=== PATIENT | female | born 1990 | race Caucasian/White ===

== ENCOUNTER 2016-12-02 21:32 | Emergency (ER) ==
--- NOTE | 2016-12-02 23:51 | Diag Imaging Result Document ---
PROCEDURE NAME: HEAD W/O CONTRAST - 12/02/2016 CT BRAIN WITHOUT: FINDINGS: No parenchymal hemorrhage. No epidural or subdural hematoma. No subarachnoid hemorrhage. No mass identified on this noncontrasted exam. No hydrocephalus. No sinus opacification. IMPRESSION: No hemorrhage. Negative brain CT without contrast. A preliminary report was given at 11:31 p.m.
--- NOTE | 2016-12-03 00:33 | PROVIDER DOCUMENTATION ---
HPI-EENT General - General Source: patient - History of Present Illness-EENT General EENT Location: reports: eye (R) Quality of Pain: reports: none Severity: reports: mild Onset/Duration: reports: this afternoon Timing: reports: gone now Prearrival Treatment: Initiated no prearrival treatment Associated Symptoms: denies: cough, fever, sore throat - Eyes Eye Problem Symptoms: reports: decrease vision. denies: eye pain, burning Apparent Injury?: No Eye Problem Context: reports: none <Jone Clark - Last Filed: 12/03/16 01:01> <Quentin Gray - Last Filed: 12/03/16 01:07> - General Chief Complaint: Eye Complaint Stated Complaint: VISION LOST (R) SIDE,HEADACHE Time Seen by Provider: 12/03/16 00:15 Allergies/Adverse Reactions: Patient Allergies Allergy/AdvReac Type Severity Reaction Status Date / Time propylene glycol Allergy RASH Verified 12/02/16 23:16 Home Medications: Home Medication List Medication Instructions Recorded Confirmed Last Taken Type Amoxicillin [Amoxil] 500 mg PO BID #10 capsule 10/01/15 Unknown Rx Antipyrine/Benzocain Otic Soln 15 ml .SEE ORDER DIRECTED PRN 10/01/15 Unknown Rx [Auralgan Otic Soln] #1 bottle Prednisone 20 mg PO DAILY #6 tablet 10/01/15 Unknown Rx Amoxicillin/Pot Clavulanate 875 mg PO Q12HR #14 tablet 02/27/16 Unknown Rx [Augmentin] Levofloxacin [Levaquin] 750 mg PO DAILY 02/27/16 02/27/16 Unknown History Lidocaine 2% Viscous [Xylocaine 2% 15 ml MT Q3H PRN PRN #1 bottle 02/27/16 Unknown Rx Viscous] Tramadol [Ultram] 50 mg PO Q8HR #14 tablet 02/27/16 Unknown Rx - History of Present Illness-EENT General Nature of Presenting Problem: 26 y/o WF presents to the ED with loss of vision with right eye to the right side of her body. Pt sais it became very distorted. Pt states she has a hx of migraines and states she now has a headache. (Jone Clark) Review of Systems - Adult - REVIEW OF SYSTEMS - ADULT Constitutional: denies: chills, fever Eyes: reports: decreased vision. denies: discharge, dry eyes, eye pain Ears, Nose, Mouth & Throat: reports: no symptoms reported Cardiovascular: reports: no symptoms reported Respiratory: reports: no symptoms reported Gastrointestinal: reports: no symptoms reported Genitourinary: reports: no symptoms reported Musculoskeletal: reports: no symptoms reported Integumentary: reports: no symptoms reported Neurological: reports: headache/migraines. denies: dizziness/vertigo, loss of balance, numbness, slurred speech, syncope Psychiatric: reports: no symptoms reported Endocrine: reports: no symptoms reported Hematologic/Lymphatic: reports: no symptoms reported Allergic/Immunologic: reports: no symptoms reported All Other Systems: Reviewed and Negative <Jone Clrak - Last Filed: 12/03/16 01:01> Past History - Adult - PAST MEDICAL HISTORY-ADULT Review of Records: reports: Old Records Reviewed, Nursing Assessment Review, Medications Reviewed Major Childhood Illnesses: reports: denies history Cardiovascular: reports: A-Fib Neurological: reports: headaches/migraines Other Conditions: reports: denies history - PRIOR SURGERIES/PROCEDURES Surgical/Procedure History: reports: none, reviewed, not pertinent - IMMUNIZATION STATUS Childhood Immunizations: See Nurse Assessment Flu Vaccine: See Nurse Assessment - FAMILY HISTORY Family History: reviewed, not pertinent - SOCIAL HISTORY Smoking: cigarettes, less than 1 pack/day Living Situation: family <Jone Clark - Last Filed: 12/03/16 01:01> Physical Exam- EENT - Physical Exam EENT Initial Vital Signs Reviewed: Yes General Appearance: appears well, alert, no apparent distress Eye Exam: bilateral eye: normal inspection, PERRL, EOMI Ear Exam: bilateral ear: auricle normal, canal normal, TM normal Nasal Exam: normal inspection. negative: active bleeding Throat Exam: normal mouth inspection, pharynx normal Neck: non-tender, full range of motion, supple, normal inspection Respiratory: normal breath sounds, no pleuratic chest pain, no respiratory distress, no accessory muscle use Cardiovascular: normal peripheral pulses, regular rate, rhythm Abdominal Exam: normal bowel sounds, non tender, soft Back Exam: normal inspection, no CVA tenderness, no vertebral tenderness Extremity: normal range of motion, non-tender, normal gait, normal inspection Integumentary: normal color, normal turgor, warm/dry Neurologic: grossly normal, no motor/sensory deficits Psych/Mental Status: normal mood/affect, normal thought content, normal thought process, oriented x 3 <Jone Clark - Last Filed: 12/03/16 01:01> Progress - EKG 1 Time of EKG reading by physician:: 00:49 EKG Read and Signed by:: Quentin Gray EKG Interpretation (*Must complete 3 of following elements*): Abnormal Rate: 73 Rhythm: NSR QRS: RBB (Incomplete) Comments: T wave abnormality - CONSULTS/PCP/HOSPITALIST Notification #1 *Consult/PCP/Hospitalist*: [facility] Time Discussed: 00:45 Reason/Comments: discuss case Consult Disposition: other (suggests a comphresive eye exam tomorrow) <Jone Clark - Last Filed: 12/03/16 01:01> <Quentin Gray - Last Filed: 12/03/16 01:07> - PLAN OF CARE/RESULTS Progress/Plan/Lab Results: Orders Category Date Time Status HEAD W/O CONTRAST [CT] Stat Exams 12/02/16 21:45 Draft EKG [EKG] Routine Ther 12/03/16 00:36 Ordered Vital Signs Temp Pulse Resp BP Pulse Ox 12/02/16 21:39 97.9 F 93 H 18 157/96 100 propylene glycol Allergy (Verified 12/02/16 23:16) RASH Amoxicillin [Amoxil] 500 mg PO BID #10 capsule 10/01/15 Antipyrine/Benzocain Otic Soln [Auralgan Otic Soln] 15 ml .SEE ORDER DIRECTED PRN #1 bottle 10/01/15 Prednisone 20 mg PO DAILY #6 tablet 10/01/15 Amoxicillin/Pot Clavulanate [Augmentin] 875 mg PO Q12HR #14 tablet 02/27/16 Levofloxacin [Levaquin] 750 mg PO DAILY 02/27/16 Lidocaine 2% Viscous [Xylocaine 2% Viscous] 15 ml MT Q3H PRN PRN #1 bottle 02/26 Tramadol [Ultram] 50 mg PO Q8HR #14 tablet 02/27/16 (Jone Clark) Departure <Jone Clark - Last Filed: 12/03/16 01:01> - Departure Time of Disposition Order: 01:05 Certified Medical Emergency: Emergent <Quentin Gray - Last Filed: 12/03/16 01:07> - Departure DIAGNOSIS: Migraine 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 These instructions are being provided to you so you can have an understanding of how to care for yourself upon discharge. Upon discharge from the Emergency Department, you are responsible for making arrangements for follow-up care by a physician of your choice. Take all prescribed medications as directed. Return to the Emergency Department immediately for any new or worsening symptoms. You may call the Physician Referral phone number at [phone] to obtain a list of Physicians who are taking new patients. Attestation - Scribe Verification/Attestation Scribe:: Jone Clark Acting as Scribe for:: Quentin Gray Scribe documention review:: This chart was documented by a scribe and accurately reflects the service the provider performed and the decisions made by the provider. <Jone Clark - Last Filed: 12/03/16 01:01> Physician Attestation
[2016-12-03 01:28] VITALS: BP 133/91
--- NOTE | 2016-12-03 01:29 | EKG Report ---
Test Performed on : 12/03/2016 00:49:02 AM Test Reason : emboli Blood Pressure : / mmHG Vent. Rate : 073 BPM Atrial Rate : 073 BPM P-R Int : 148 ms QRS Dur : 100 ms QT Int : 416 ms P-R-T Axes : 045 027 -07 degrees QTc Int : 458 ms Normal sinus rhythm. Incomplete right bundle branch block T wave abnormality, consider anterior ischemia Abnormal ECG No previous ECGs available Unconfirmed Result
== END 2016-12-03 01:27 | disposition home or self-care (01) ==
LOC: P.ED 21:32
DX: G43.109 Migraine with aura, not intractable, without status migrainosus (principal); H53.9 Unspecified visual disturbance; R51 Headache; I48.91 Unspecified atrial fibrillation; F17.210 Nicotine dependence, cigarettes, uncomplicated; R94.31 Abnormal electrocardiogram [ECG] [EKG]; Z79.899 Other long term (current) drug therapy; Z79.52 Long term (current) use of systemic steroids
CPT/HCPCS: 70450; 93005